=== PATIENT | male | born 1970 ===

== ENCOUNTER 2023-07-15 05:55 | Day surgery (SDC) | payer OTHER ==
[2023-07-15] MEDS ORDERED: METRONIDAZOLE/SODIUM CHLORIDE 500 MG/100 ML PIGGYBACK IV ONE (07:34)
[2023-07-15] MEDS ORDERED: CEFTRIAXONE SODIUM 2,000 MG VIAL ONE (07:34)
[2023-07-15] MEDS ORDERED: HEMOSTATIC MATRIX 1 KIT KIT TOP ONE ×2 (09:08→09:45)
[2023-07-15] MEDS ORDERED: DIBUCAINE 15 GM OINT..GM. TUBE ONE (09:08)
[2023-07-15] MEDS ORDERED: POVIDONE-IODINE 118 ML BOTT TOP ONE (09:08)
[2023-07-15] MEDS ORDERED: METRONIDAZOLE/SODIUM CHLORIDE 200 ML IV ONE (09:45)
[2023-07-15] MEDS ORDERED: DIBUCAINE 30 GM TUBE RC ONE (09:45)
[2023-07-15] MEDS ORDERED: POVIDONE-IODINE 118 ML BOTT TP ONE (09:45)
[2023-07-15] MEDS ORDERED: CEFTRIAXONE SODIUM 2,000 MG in 0.9 % SODIUM CHLORIDE 50 ML IV ONE (09:45)
[2023-07-15] MEDS ORDERED: OXYC1TAB9 PO (10:26)
[2023-07-15] MEDS ORDERED: TAMSULOSIN HCL 0.4 MG CAP PO ONE ×2 (10:30→11:03)
== END 2023-07-15 17:50 | disposition home or self-care (01) ==
LOC: CIR.AMB 05:55
PROVIDERS: ATTEND Surgery
DX: K60.3 Anal fistula (principal); K60.1 Chronic anal fissure; Z87.898 Personal history of other specified conditions; E11.9 Type 2 diabetes mellitus without complications; Z20.822 Contact with and (suspected) exposure to COVID-19